=== PATIENT | female | born 1980 | race Caucasian/White ===

== ENCOUNTER 2023-01-18 16:38 | Emergency (ER) | payer BC, SELFPAY ==
[2023-01-18 16:49] VITALS: BP 119/84; PULSE 111; RESP 18; TEMP 36.6; O2SAT 96; BMI 32.9
--- NOTE | 2023-01-18 17:14 | ED_ITS ---
HPI - General Adult General Chief complaint: Headache/Migraine Stated complaint: Headache Time Seen by Provider: 01/18/23 16:42 Source: patient Mode of arrival: ambulatory Limitations: no limitations History of Present Illness HPI narrative: Patient is a 42-year-old female coming in today with a headache located over her left oriental orthodox that started in the middle of the night yesterday. She states that she gets these headaches approximately 3 times per year and she has been getting them for approximately 20 years. She states that she has had thorough workups and nothing has been found as to why she gets these ?attacks?. When they come the only thing that makes them feel better is prednisone, patient states that however her new physician is wary of giving her prednisone. she moved to [place] approximately 3 years ago from [place]. Her past medical history is significant for depression, hyperlipidemia and these headaches. She is on duloxetine, loratadine, atorvastatin. She denies any tobacco or drug use. She denies vomiting, fevers or chills. No blurry vision, no focal neurologic deficits. She states that sometimes the pain does radiate into her upper jaw, she does state that she has been worked up for trigeminal neuralgia in the past. She denies changes in her hearing. No ringing in her ears. Related Data Previous Rx's Medication Instructions Recorded prednisone 20 mg tablet 20 mg PO DIRECTED 9 days #18 01/18/23 tabs prednisone 20 mg tablet 20 mg PO DIRECTED 9 days #18 01/18/23 tabs Allergies Allergy/AdvReac Type Severity Reaction Status Date / Time codeine AdvReac Intermediate Nausea Verified 01/18/23 16:53 Review of Systems Status of ROS: Reports: 10 or more systems reviewed and unremarkable except as noted in History and below [facility] Social History Smoking Status: Never smoker How often do you have a drink containing alcohol: never AUDIT-C Alcohol total score: 0 Non-prescribed substance use: denies use Exam Narrative: Exam Narrative: Well-nourished well-developed patient, tearful. Alert and oriented. Answers questions appropriately. No tangential or magical thinking noted. Patient speaks in full sentences without needing to catch her breath. HEENT: Normocephalic atraumatic. Pupils are equally round reactive to light, although slightly dilated. Extraocular muscles are intact. Conjunctivae are moist without any icterus noted. Moist mucous membranes. Posterior pharynx is normal. Neck is soft without any lymphadenopathy or thyromegaly. No masses are appreciated. TMs are clear bilaterally. Argyle is not tender to palpation. There are no skin changes. Cardiovascular: Heart is regular rate and rhythm S1 and S2 are present without any murmurs. Lungs: Clear to auscultation bilaterally no wheezes rhonchi or rales are appreciated. Patient takes deep breaths without any discomfort. Skin: Well perfused without any obvious rashes. Const: Vital Signs, click to edit/add: Vital Signs - 24 hr 01/18/23 16:49 Temperature 97.8 F Pulse Rate [Pulse Oximeter] 111 H Respiratory Rate 18 Blood Pressure [Ri ght Upper Arm] 119/84 Pulse Oximetry 96 Oxygen Delivery Me thod Room Air Course Course Hospital Course: IV established patient was given eye the Toradol, Benadryl and Decadron. CBC, CRP and sed rate were checked-unremarkable. After treatment patient felt about the same, but she understood that sometimes it takes a while for these medicines to kick in. She was happy to be discharged with a prescription for a prednisone taper. Vital Signs Vital signs: Initial Vital Signs Temperature 97.8 F 01/18/23 16:49 Temperature Source Temporal Artery Scan 01/18/23 16:49 Pulse Rate 111 H 01/18/23 16:49 Respiratory Rate 18 01/18/23 16:49 Blood Pressure 119/84 01/18/23 16:49 Blood Pressure Mean 95 01/18/23 16:49 Pulse Oximetry 96 01/18/23 16:49 Oxygen Delivery Method Room Air 01/18/23 16:49 Vital Signs Temperature 97.8 F 01/18/23 16:49 Pulse Rate 111 H 01/18/23 16:49 Respiratory Rate 18 01/18/23 16:49 Blood Pressure 119/84 01/18/23 16:49 Pulse Oximetry 96 01/18/23 16:49 Oxygen Delivery Method Room Air 01/18/23 16:49 Temperature 97.8 F 01/18/23 16:49 Pulse Rate 111 H 01/18/23 16:49 Respiratory Rate 18 01/18/23 16:49 Blood Pressure 119/84 01/18/23 16:49 Pulse Oximetry 96 01/18/23 16:49 Oxygen Delivery Method Room Air 01/18/23 16:49 Medical Decision Making MDM Narrative Medical decision making narrative: Headache of unclear etiology. Patient will be discharged on a prednisone taper. Follow-up with primary care as needed. Return to the ER for worsening symptoms, fever or vomiting. Lab Data Lab results reviewed: Yes I reviewed the patient's lab results Labs: Lab Results 01/18/23 Range/Units 17:25 WBC 9.45 (4.50-11.00) K/uL RBC 5.26 H (4.00-5.20) m/uL Hgb 16.0 (12.0-16.0) gm/dL Hct 48.1 (33.0-51.0) % MCV 91 (80-100) fL MCH 30 (26-34) pg MCHC 33 (32-36) gm/dL RDW Coeff of Wilson 13.6 (11.5-15.5) % Plt Count 192 (140-440) K/uL Neut % (Auto) 86.5 H (42.0-72.0) % Lymph % (Auto) 11.1 L (20-44) % [place]nam % (Auto) 1.1 (0.0-11.0) % Eos % (Auto) 0.0 (0.0-7.0) % Baso % (Auto) 0.1 (0.0-3.0) % Neut # (Auto) 8.20 H (1.7-7.0) K/uL Lymph # (Auto) 1.00 (0.90-2.90) K/uL Putnam # (Auto) 0.10 (0.00-0.90) K/UL Eos # (Auto) 0.00 (0.00-0.50) K/uL Baso # (Auto) 0.01 (0.00-0.30) K/uL C-Reactive Protein < 0.5 L (0.5-1.0) mg/dL Discharge Plan Discharge Clinical Impression: Headache Patient Disposition: Home, Self-Care Condition: Stable Additional Instructions: Follow-up with your doctor as needed. Return to the ER for fevers, worsening symptoms, or focal neurologic deficits. Prescriptions: New prednisone 20 mg tablet 20 mg PO DIRECTED 9 Days Qty: 18 0RF Rx Instructions: 60 mg p.o. daily for 3 days (3 tablets daily on day 1-3), 40 mg daily for 3 days (2 tablets daily on days 4-6), 20 mg daily for 3 days (1 tablet daily on days 7-9). prednisone 20 mg tablet 20 mg PO DIRECTED 9 Days Qty: 18 0RF Rx Instructions: 60 mg p.o. daily for 3 days (3 tablets daily on day 1-3), 40 mg daily for 3 days (2 tablets daily on days 4-6), 20 mg daily for 3 days (1 tablet daily on days 7-9). Stand Alone Forms: [employer] Info Instructions
[2023-01-18 17:39] LABS: Basophils Absolute Auto 0.01 K/uL (0.00-0.30); Basophils Percent Auto 0.1 % (0.0-3.0); Hematocrit 48.1 % (33.0-51.0); Immature Granulocytes Abs Auto 0.11 K/uL (0.00-0.30); Immature Granulocytes Pct Auto 1.2 %; Lymphocytes Percent Auto 11.1 % (20-44); Mean Corpuscular HGB Conc 33 gm/dL (32-36); Mean Corpuscular Hemoglobin 30 pg (26-34); Mean Corpuscular Volume 91 fL (80-100); Monocytes Percent Auto 1.1 % (0.0-11.0); Neutrophils Percent Auto 86.5 % (42.0-72.0); Platelet Count* 192 K/uL (140-440); RDW Coefficient of Variation % 13.6 % (11.5-15.5); Red Blood Count 5.26 m/uL (4.00-5.20); White Blood Count* 9.45 K/uL (4.50-11.00)
[2023-01-18] MEDS: 0.9 % SODIUM CHLORIDE 500 ML 500 ML IV (17:46)
[2023-01-18] MEDS: dexAMETHasone 4 MG/ML VIAL 10 MG IV (17:47)
[2023-01-18] MEDS: KETOROLAC 30 MG/ML inj IVP (17:47)
[2023-01-18] MEDS: diphenhydrAMINE 50 MG/ML inj 25 MG IVP (17:47)
[2023-01-18 18:01] LABS: C Reactive Protein* < 0.5 mg/dL (0.5-1.0); Slide Review Reflex No
[2023-01-18 18:28] LABS: Erythrocyte SedimentationRate* 4 mm/hr (2-20)
== END 2023-01-18 18:42 | disposition home or self-care (01) ==
PROVIDERS: Emergency Provider Family Medicine; PCP Physician Assistant
DX: R51.9 Headache, unspecified (principal)
CPT/HCPCS: 36415; 85025; 85651; 86140; 96374; 96375; 99284; J1100; J1200; J1885; J7120

== ENCOUNTER 2024-04-12 10:10 | Outpatient (CLI) | payer BC, SELFPAY ==
--- NOTE | 2024-04-12 11:13 | W.ANESCHARGE ---
Anesthesia Charges Start Date/Time Anesthesia Start Date: 04/12/24 Anesthesia Start Time: 10:43 Stop Date/Time Anesthesia Stop Date: 04/12/24 Anesthesia Stop Time: 11:11
--- NOTE | 2024-04-12 11:19 | W.ANESCHARGE ---
Anesthesia Charges Start Date/Time Anesthesia Start Date: 04/12/24 Anesthesia Start Time: 10:43 Stop Date/Time Anesthesia Stop Date: 04/12/24 Anesthesia Stop Time: 11:11
== END 2024-04-12 10:11 | disposition home or self-care (01) ==
LOC: OP CLINIC 10:12
PROVIDERS: PCP Student in an Organized Health Care Education/Training Program; Visit Provider Internal Medicine Gastroenterology
DX: Z12.11 Encounter for screening for malignant neoplasm of colon (principal); K62.1 Rectal polyp; Z80.0 Family history of malignant neoplasm of digestive organs
CPT/HCPCS: 00811; 45385; 88305; J2704